=== PATIENT | female | born 1995 | race Caucasian/White ===

== ENCOUNTER 2022-01-02 16:10 | Emergency (ER) | payer OTHER ==
[~2022-01-02] VITALS: Ht 152.4 cm; Wt 59.0 kg
[2022-01-02 16:22] VITALS: BP 107/64
[2022-01-02] MEDS ORDERED: CYCLOBENZAPRINE 10MG TABLET PO ONE (19:15)
[2022-01-02] MEDS ORDERED: KETOROLAC 15MG/ML VIAL IM ONE (19:15)
[2022-01-02] MEDS ORDERED: CYCL5TAB MT (21:50)
== END 2022-01-03 02:32 | disposition home or self-care (01) ==
LOC: ER 16:10
DX: M54.50 Low back pain, unspecified (principal)
CPT/HCPCS: 36415; 72100; 84702; 96372; 99284; J1885

== ENCOUNTER 2022-06-07 07:19 | Emergency (ER) | payer OTHER ==
[~2022-06-07] VITALS: Ht 152.4 cm; Wt 59.0 kg
[~2022-06-07 07:19] MED LIST: CYCL5TAB MT
[2022-06-07 07:26] VITALS: BP 119/69
[2022-06-07] MEDS ORDERED: CYCL10TA21 MT (08:22)
[2022-06-07] MEDS ORDERED: NAPR500T7 MT (08:22)
== END 2022-06-07 08:35 | disposition home or self-care (01) ==
LOC: ER 07:27
DX: M54.50 Low back pain, unspecified (principal); M54.6 Pain in thoracic spine
CPT/HCPCS: 81025; 99283

== ENCOUNTER 2023-09-22 21:05 | Emergency (ER) | payer MEDICAID, OTHER ==
[~2023-09-22] VITALS: Ht 152.4 cm; Wt 56.6 kg
[~2023-09-22 21:05] MED LIST changes: +CYCL10TA21 MT; +NAPR500T7 MT
[2023-09-22 21:15] VITALS: BP 134/85; PULSE 94; RESP 16; TEMP 98.8; O2SAT 99
[2023-09-22 22:20] LABS: CLARITY URINE CLOUDY (CLEAR); COLOR URINE YELLOW (YELLOW); GLUCOSE URINE NEGATIVE (NEGATIVE); KETONES URINE NEGATIVE (NEGATIVE); LEUKOCYTE ESTERASE URINE NEGATIVE (NEGATIVE); NITRITE URINE NEGATIVE (NEGATIVE); OCCULT BLOOD URINE 3+ (NEGATIVE); PH URINE 5.5 (4.5-8.0); PROTEIN URINE NEGATIVE (NEGATIVE); SPECIFIC GRAVITY URINE 1.021 (1.005-1.030); UROBILINOGEN URINE 0.2 E.U./dL (0.2-1.0)
[2023-09-22 22:29] LABS: BACTERIA URINE NONE SEEN; RBC URINE 0-2 /hpf (0-2); SQUAMOUS EPITHELIAL CELL URINE 2+ /lpf (RARE/1+); WBC URINE 0-2 /hpf (0-2)
[2023-09-22 23:03] LABS: BASOPHILS % 0.4 % (0.0-2.0); EOSINOPHILS % 1.2 % (0.0-5.0); HEMATOCRIT. 42.4 % (36.0-48.0); HEMOGLOBIN. 14.8 g/dL (12.0-16.0); LYMPHOCYTES % 34.9 % (20.0-50.0); MEAN CORPUSCULAR HEMOGLOBIN 30.5 pg (28.0-32.0); MEAN CORPUSCULAR HGB CONC 34.9 g/dL (31.0-37.0); MEAN CORPUSCULAR VOLUME 87.5 fL (81.0-99.0); MEAN PLATELET VOLUME 8.2 fl (7.4-10.4); NEUTROPHILS % 55.5 % (40.0-76.0); PLATELET 357 x1000/uL (130-400); RED BLOOD CELL COUNT 4.84 mill/uL (4.2-5.4); RED CELL DISTRIBUTION WIDTH 13.3 % (11.6-14.6); WHITE BLOOD COUNT 10.1 x1000/uL (4.5-11.0)
[2023-09-22 23:19] LABS: ALANINE AMINOTRANSFERASE 12 IU/L (10-49); ALBUMIN 4.8 g/dL (3.2-4.8); ASPARTATE AMINOTRANSFERASE 25 IU/L (<34); BILIRUBIN TOTAL 0.6 mg/dL (0.1-1.0); CALCIUM 9.8 mg/dL (8.7-10.4); CARBON DIOXIDE 26 mEq/L (21-32); CHLORIDE 106 mEq/L (98-107); CREATININE 0.7 mg/dL (0.6-1.0); GLUCOSE 89 mg/dL (70-105); POTASSIUM 4.1 mEq/L (3.5-5.1); PROTEIN TOTAL 7.8 g/dL (6.0-8.3); SODIUM 138 mEq/L (136-145); UREA NITROGEN BLOOD 16 mg/dL (9-23)
[2023-09-22 23:21] LABS: HCG SCREEN NEGATIVE
[2023-09-22] MEDS: KETOROLAC 30MG/ML VIAL IM ONE (23:35)
[2023-09-23] MEDS ORDERED: IBUP-2029 MT (00:42)
== END 2023-09-23 00:52 | disposition home or self-care (01) ==
LOC: ER 21:17
DX: N93.9 Abnormal uterine and vaginal bleeding, unspecified (principal)
CPT/HCPCS: 99285; 76830; 76856; 80053; 81003; 81025; 84703; 85025; 86850; 86900; 86901; 36415; 96372; J1885